=== PATIENT | male | born 1970 | race Caucasian/White ===

== ENCOUNTER 2018-01-21 14:10 | Emergency (ER) | payer OTHER ==
[~2018-01-21] VITALS: Ht 165.1 cm; Wt 84.8 kg
[2018-01-21] MEDS ORDERED: ATARAX25 MG (14:29)
== END 2018-01-21 16:53 | disposition home or self-care (01) ==
LOC: ER 14:10
DX: N43.2 Other hydrocele (principal); N45.1 Epididymitis; N50.812 Left testicular pain

== ENCOUNTER 2018-05-20 19:59 | Emergency (ER) | payer OTHER ==
[~2018-05-20] VITALS: Ht 165.1 cm; Wt 83.5 kg
[~2018-05-20 19:59] MED LIST: ATARAX25 MG
== END 2018-05-20 22:30 | disposition home or self-care (01) ==
LOC: ER 19:59
DX: N41.9 Inflammatory disease of prostate, unspecified (principal)

== ENCOUNTER 2018-05-26 13:34 | Emergency (ER) | payer OTHER ==
[~2018-05-26] VITALS: Ht 165.1 cm; Wt 83.5 kg
== END 2018-05-26 18:13 | disposition home or self-care (01) ==
LOC: ER 13:34
DX: M54.5 Low back pain (principal); N41.8 Other inflammatory diseases of prostate; N39.0 Urinary tract infection, site not specified

== ENCOUNTER 2019-07-29 12:02 | Emergency (ER) | payer OTHER ==
[~2019-07-29] VITALS: Ht 165.1 cm; Wt 82.6 kg
== END 2019-07-29 22:40 | disposition left against medical advice (07) ==
LOC: ER 12:02
DX: R10.32 Left lower quadrant pain (principal); Z03.818 Encounter for observation for suspected exposure to other biological agents ruled out

== ENCOUNTER 2019-09-20 07:15 | Day surgery (SDC) | payer OTHER | END 2019-09-20 13:45 | disposition home or self-care (01) | LOC: AMB-ENDOS 07:15 → ADM 14:00 | PROVIDERS: ATTEND Colon & Rectal Surgery | DX: K57.32 Diverticulitis of large intestine without perforation or abscess without bleeding (principal); K64.1 Second degree hemorrhoids ==

== ENCOUNTER 2021-06-18 18:36 | Emergency (ER) | payer OTHER ==
[~2021-06-18] VITALS: Ht 165.1 cm; Wt 80.7 kg
[2021-06-18] MEDS ORDERED: ATARAX25 MG PO (21:38)
== END 2021-06-18 21:42 | disposition home or self-care (01) ==
LOC: ER 18:36
DX: R42 Dizziness and giddiness (principal)